=== PATIENT | female | born 1960 | race American Indian/Alaskan Native ===

== ENCOUNTER 2016-12-06 18:43 | Emergency (ER) | payer OTHER ==
[2016-12-06] MEDS ORDERED: MOTRIN PO ONE (19:07)
[2016-12-06] MEDS ORDERED: TYLENOL PO ONE (19:07)
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
== END 2016-12-06 20:27 | disposition home or self-care (01) ==
LOC: ED 18:43
DX: M54.2 Cervicalgia (principal); R51 Headache; E11.9 Type 2 diabetes mellitus without complications
CPT/HCPCS: 70450; 72125; 99284